=== PATIENT | male | born 1960 | race Hispanic/Latino ===

== ENCOUNTER 2018-11-05 16:07 | Inpatient (IN) | payer OTHER ==
[~2018-11-05] VITALS: Ht 170.2 cm; Wt 73.5 kg
[2018-11-05] MEDS ORDERED: ONDANSETRON HCL 4 MG/2 ML VIAL ONE (16:41)
[2018-11-05] MEDS ORDERED: SODIUM CHLORIDE 0.9% 1000ML 1,000 ML IV ONE ×2 (16:41→17:33)
[2018-11-05 16:51] LABS: BASOPHILS % (AUTO) 0.9 % (0.0-5.0); EOSINOPHILS % (AUTO) 0.6 % (0.0-8.0); LYMPHOCYTES % (AUTO) 9.9 % (21.0-51.0); MEAN CORPUSCULAR HEMOGLOBIN 31.1 pg (27.0-33.0); MEAN CORPUSCULAR HGB CONC 32.4 g/dL (32.0-36.0); MEAN CORPUSCULAR VOLUME 95.8 fL (79-99); MONOCYTES % (AUTO) 9.3 % (3.0-13.0); NEUTROPHILS % (AUTO) 79.3 % (40.0-77.0); PLATELET COUNT (AUTO) 191 K/uL (130-400); RED BLOOD CELL COUNT(AUTO) 4.28 MIL/uL (4.50-6.20); RED CELL DISTRIBUTION WIDTH 15.4 % (11.0-15.5); WHITE BLOOD COUNT (AUTO) 9.2 K/uL (4.8-10.8)
[2018-11-05 17:02] LABS: INR 1.02 (0.85-1.15); PARTIAL THROMBOPLASTIN TIME 26.3 SEC (26.3-35.5); PROTHROMBIN TIME 10.7 SEC (9.6-11.6)
[2018-11-05 17:16] LABS: ABG BASE EXCESS -14.8 mmol/L (-2.0-3.0); ABG OXYGEN SATURATION 97.3 % (95.0-99.0); ABG PCO2 23 mmHg (35-48)
[2018-11-05 17:21] LABS: ALBUMIN 3.5 g/dL (3.5-5.0); BILIRUBIN,TOTAL 1.7 mg/dL (0.2-1.0); CREATININE 1.8 mg/dL (0.5-1.5); POTASSIUM 5.5 mmol/L (3.5-5.1); TOTAL PROTEIN, SERUM 9.2 g/dL (6.0-8.3)
[2018-11-05] MEDS ORDERED: INSULIN HUMULIN R 100 UNIT/ML 3ML ONE (17:33)
[2018-11-05] MEDS ORDERED: SODIUM CHLORIDE 0.9% 100 ML IV ONE (17:33)
[2018-11-05 17:54] LABS: APPEARANCE,URINE CLEAR (CLEAR); BILIRUBIN,URINE SMALL (NEGATIVE); COLOR,URINE YELLOW (YELLOW); GLUCOSE, URINE (UA) >=1000 mg/dL (NEGATIVE); KETONES,URINE 40 mg/dL (NEGATIVE); LEUKOCYTE ESTERASE ,URINE NEGATIVE (NEGATIVE); NITRATE,URINE NEGATIVE (NEGATIVE); OCCULT BLOOD,URINE NEGATIVE (NEGATIVE); PH,URINE 5.5 (5.0-8.0); PROTEIN,URINE NEGATIVE (NEGATIVE); UROBILINOGEN,URINE 0.2 mg/dL (0.2-1.0)
[2018-11-05 18:03] LABS: AMPHET/METH SCREEN,URINE NEGATIVE (NEGATIVE); BARBITURATE SCREEN, URINE NEGATIVE (NEGATIVE); BENZODIAZEPINES SCREEN,URINE NEGATIVE (NEGATIVE); CANNABINOID SCREEN,URINE NEGATIVE (NEGATIVE); COCAINE SCREEN,URINE NEGATIVE (NEGATIVE); OPIATE SCREEN,URINE NEGATIVE (NEGATIVE); PHENCYCLIDINE SCREEN,URINE NEGATIVE (NEGATIVE)
[2018-11-05 18:13] LABS: BACTERIA,URINE Rare /HPF (None Seen); RBC,URINE 0-1 /HPF (0-1); SQUAMOUS EPITHELIAL CELL,UR Rare /HPF (0-2); WBC,URINE 0-1 /HPF (0-1)
[2018-11-05] MEDS ORDERED: SODIUM BICARB 50MEQ 50ML VIAL ONE (18:25)
[2018-11-05 18:36] LABS: MAGNESIUM 2.1 mg/dL (1.80-2.40); PHOSPHORUS 5.2 mg/dL (2.5-4.9)
[2018-11-05] MEDS ORDERED: ACETAMINOPHEN 650 MG SUPPOSITORY RC PRN ×2 (18:45)
[2018-11-05] MEDS ORDERED: INSULIN REGULAR, HUMAN 3ML 100 UNIT in SODIUM CHLORIDE 0.9% 99 ML IV SCH ×2 (18:45)
[2018-11-05] MEDS ORDERED: ONDANSETRON HCL 4 MG/2 ML VIAL IV PRN (18:45)
[2018-11-05] MEDS ORDERED: POTASSIUM CHLORIDE 10MEQ/100ML 100 ML IV PRN (18:45)
[2018-11-05] MEDS ORDERED: NITROGLYCERIN 0.4 MG SL TAB SL PRN (18:45)
[2018-11-05] MEDS: SODIUM CHLORIDE 0.9% 1000ML 1,000 ML IV SCH ×2 (18:45→23:45)
[2018-11-05] MEDS ORDERED: DEXTROSE 5 %-0.45 % NACL 1,000 ML IV PRN (18:45)
[2018-11-05] MEDS: INSULIN HUMULIN R 100 UNIT/ML 3ML IV SCH (18:45)
[2018-11-05] MEDS ORDERED: CALCIUM GLUCONATE 1 GM/10 ML VIAL IV ONE (19:02)
[2018-11-05 19:20] LABS: HEMOGLOBIN A1C 12.6 % (4.0-6.0)
[2018-11-05] MEDS: FAMOTIDINE/PF 20 MG/2 ML VIAL IV SCH (21:00)
[2018-11-05] MEDS ORDERED: AMIODARONE HCL 900 MG in DEXTROSE 5%-WATER 500 ML IV PRN (21:30)
[2018-11-05] MEDS ORDERED: AMIODARONE HCL 150 MG in DEXTROSE 5%-WATER 100 ML IV SCH (21:30)
[2018-11-06] VITALS (18 sets, daily range): BP systolic 112–160; BP diastolic 65–111
[2018-11-06 00:42] LABS: ABG BASE EXCESS -3.5 mmol/L (-2.0-3.0); ABG HCO3 20.8 mmol/L (21.0-28.0); ABG OXYGEN SATURATION 97.1 % (95.0-99.0); ABG PCO2 35 mmHg (35-48)
[2018-11-06 00:52] LABS: CREATININE 1.5 mg/dL (0.5-1.5); MAGNESIUM 1.9 mg/dL (1.80-2.40); THYROID STIMULATING HORMONE 3.52 uIU/mL (0.36-3.74); TROPONIN I 0.08 ng/mL (0.00-0.06)
[2018-11-06] MEDS ORDERED: LIDOCAINE HCL-MPF 1% 2ML VIAL IVP PRN (01:15)
[2018-11-06] MEDS ORDERED: MAGNESIUM 2GM PREMIX 50ML 50 ML IV PRN (01:15)
[2018-11-06] MEDS ORDERED: POTASSIUM CHLORIDE 10MEQ/100ML 100 ML IV PRN (01:15)
[2018-11-06] MEDS ORDERED: DEXTROSE 5 %-0.45 % NACL 1,000 ML IV ONE (01:59)
[2018-11-06] MEDS ORDERED: POTASSIUM CHLORIDE 10MEQ/100ML 100 ML IV ONE ×2 (01:59→07:00)
[2018-11-06] MEDS ORDERED: MAGNESIUM 2GM PREMIX 50ML 50 ML IV ONE (01:59)
[2018-11-06] MEDS ORDERED: LIDOCAINE HCL 1% 20 ML VIAL ONE (02:00)
[2018-11-06] MEDS ORDERED: SODIUM CHLORIDE 0.9% 100 ML IV ONE (02:27)
[2018-11-06] MEDS ORDERED: INSULIN REGULAR, HUMAN 3ML 100 UNIT in SODIUM CHLORIDE 0.9% 99 ML IV SCH ×2 (03:30)
[2018-11-06] MEDS: SODIUM CHLORIDE 0.9% 1000ML 1,000 ML IV SCH ×2 (04:45→09:10)
[2018-11-06 05:22] LABS: ABG BASE EXCESS -3.6 mmol/L (-2.0-3.0); ABG OXYGEN SATURATION 97.2 % (95.0-99.0); ABG PCO2 37 mmHg (35-48)
[2018-11-06 06:20] LABS: BASOPHILS % (AUTO) 0.5 % (0.0-5.0); EOSINOPHILS % (AUTO) 0.9 % (0.0-8.0); HEMATOCRIT 33.8 % (42-54); MEAN CORPUSCULAR HEMOGLOBIN 31.7 pg (27.0-33.0); MEAN CORPUSCULAR HGB CONC 34.6 g/dL (32.0-36.0); MEAN CORPUSCULAR VOLUME 91.7 fL (79-99); MONOCYTES % (AUTO) 11.1 % (3.0-13.0); NEUTROPHILS % (AUTO) 75.5 % (40.0-77.0); PLATELET COUNT (AUTO) 117 K/uL (130-400); RED BLOOD CELL COUNT(AUTO) 3.69 MIL/uL (4.50-6.20); RED CELL DISTRIBUTION WIDTH 14.8 % (11.0-15.5); WHITE BLOOD COUNT (AUTO) 7.8 K/uL (4.8-10.8)
[2018-11-06 06:28] LABS: CREATININE 1.3 mg/dL (0.5-1.5); POTASSIUM 3.2 mmol/L (3.5-5.1)
[2018-11-06 06:42] LABS: MAGNESIUM 2.4 mg/dL (1.80-2.40); TROPONIN I 0.09 ng/mL (0.00-0.06)
[2018-11-06] MEDS ORDERED: HYDR12.54 PO (08:35)
[2018-11-06] MEDS ORDERED: LISI-613 PO (08:35)
[2018-11-06] MEDS ORDERED: METF-444 PO (08:35)
[2018-11-06] MEDS ORDERED: METOPROLOL TARTRATE 25 MG TAB PO SCH ×2 (09:00→21:00)
[2018-11-06] MEDS ORDERED: ASPIRIN 325MG EC TAB 325 MG TABLET.DR PO SCH (09:00)
[2018-11-06] MEDS: FAMOTIDINE/PF 20 MG/2 ML VIAL IV SCH ×2 (09:08→20:40)
[2018-11-06] MEDS: ENOXAPARIN SODIUM 30 MG/0.3 ML SQ SCH (09:10)
[2018-11-06 12:17] LABS: CREATININE 1.3 mg/dL (0.5-1.5); MAGNESIUM 2.2 mg/dL (1.80-2.40); POTASSIUM 3.4 mmol/L (3.5-5.1)
[2018-11-06] MEDS: INSULIN LISPRO 100 UNIT/ML 3ML SQ SCH ×5 (12:37→22:17)
[2018-11-06] MEDS: INSULIN HUMULIN R 100 UNIT/ML 3ML IV SCH (12:39)
--- NOTE | 2018-11-06 12:57 | NUR ---
RECEIVED REPORT ON PATIENT BEING TRANSFERRED FROM ICU REPORT GIVEN BY RUDOLPH PATIENT ADMITTED FOR DKA , LAST BLOOD SUGAR IN 200 , PATIENT ON 1/2 SLIDING SCALE POTASSIUM LOW PATIENT GIVEN 2 BAGS OF REPLACEMENT AND RE- DRAWN K+ 3.4 WILL CONTINUE 2 DOSES OF POTASSIUM REPLACEMENT ON PO SCALE. . VS 112/60 O2 SATS 99 ON ROOM AIR, NEWLY DIAGNOSIS OF DM. HOME MEDICATIONS LISTED , PATIENT ALERT AND ORIENTATED X 3 . DENIES PAIN AT THIS TIME. PLACED IN BED WILL CONTINUE TO MONITOR
[2018-11-06] MEDS ORDERED: INSULIN GLARGINE 100 UNITS/ML 10 ML VIAL SQ SCH ×2 (12:58→21:00)
--- NOTE | 2018-11-06 13:35 | NUR ---
DC PLAN VISITED WITH PATIENT. PATIENT LIVES WITH MOM AND SPOUSE. INDEPENDENT ABLE TO PERFORM ADL'S. PATIENT HAS NO SERVICES OR DME'S. FEELS SAFE TO RETURN HOME. GAVE INFO REGARDING GLUCOSE BUMBOATER AT [address] FOR NEW MACHINE AND LANCETS WITH TEST STRIPS FOR THE MONTH. Addendum: 11/06/18 at 1338 by NEIL PAIZ RN CM Amended: Links added.
[2018-11-06] MEDS: POTASSIUM CHLORIDE 20 MEQ ERTAB PO PRN ×2 (16:47→18:50)
[2018-11-06 18:37] LABS: CREATININE 1.4 mg/dL (0.5-1.5); POTASSIUM 3.3 mmol/L (3.5-5.1)
[2018-11-07] VITALS: BP 117/79
[2018-11-07 04:00] VITALS: BP 145/89
[2018-11-07 04:09] LABS: HEMATOCRIT 34.4 % (42-54); MEAN CORPUSCULAR HEMOGLOBIN 31.2 pg (27.0-33.0); MEAN CORPUSCULAR HGB CONC 34.3 g/dL (32.0-36.0); MEAN CORPUSCULAR VOLUME 91.1 fL (79-99); PLATELET COUNT (AUTO) 112 K/uL (130-400); RED BLOOD CELL COUNT(AUTO) 3.78 MIL/uL (4.50-6.20); RED CELL DISTRIBUTION WIDTH 14.8 % (11.0-15.5); WHITE BLOOD COUNT (AUTO) 5.9 K/uL (4.8-10.8)
[2018-11-07 04:24] LABS: MAGNESIUM 1.7 mg/dL (1.80-2.40); POTASSIUM 3.1 mmol/L (3.5-5.1)
[2018-11-07] MEDS: INSULIN LISPRO 100 UNIT/ML 3ML SQ SCH ×7 (06:34→21:06)
[2018-11-07] MEDS: POTASSIUM CHLORIDE 20 MEQ ERTAB PO PRN ×2 (07:00→09:11)
[2018-11-07 07:29] VITALS: BP 156/89
--- NOTE | 2018-11-07 07:35 | NUR ---
ROUNDS here to see pt.
[2018-11-07] MEDS: ASPIRIN 81MG TAB.CHEW PO SCH (09:00)
[2018-11-07] MEDS: FUROSEMIDE 20 MG TABLET PO SCH (09:01)
[2018-11-07] MEDS: CARVEDILOL 3.125 MG TABLET PO SCH ×2 (09:02→21:03)
[2018-11-07] MEDS: LOSARTAN 50 MG TABLET PO SCH (09:03)
[2018-11-07] MEDS: FAMOTIDINE/PF 20 MG/2 ML VIAL IV SCH ×2 (09:04→21:04)
[2018-11-07] MEDS: ENOXAPARIN SODIUM 30 MG/0.3 ML SQ SCH (09:05)
--- NOTE | 2018-11-07 09:30 | NUR ---
GABO/DR. Jerry STEPHENSON HERE TO SEE PT, UPDATE GIVEN
[2018-11-07 11:21] VITALS: BP 125/57
[2018-11-07] MEDS: POTASSIUM CHLORIDE 10% ELIXIR 20 MEQ/15 ML UDCUP PO PRN (12:05)
[2018-11-07] MEDS: INSULIN GLARGINE 100 UNITS/ML 10 ML VIAL SQ SCH ×2 (13:10→21:06)
--- NOTE | 2018-11-07 15:06 | NUR ---
Diet Education RD provided Diabetes diet education. RD reviewed reference materials and handouts with Pt. Pt with many questions. RD answered questions thoroughly with multiple examples. Pt verbalized understanding. RD encouraged to notify as additional concerns or questions arise. Addendum: 11/07/18 at [address] RD Amended: Links added.
[2018-11-07 16:12] VITALS: BP 113/87
[2018-11-07] MEDS: INSULIN HUMULIN R 100 UNIT/ML 3ML IV SCH (18:45)
[2018-11-07 20:00] VITALS: BP 134/93
[2018-11-07] MEDS ORDERED: INSULIN GLARGINE 100 UNITS/ML 10 ML VIAL SQ SCH (21:00)
[2018-11-08] VITALS: BP 133/92
[2018-11-08 04:00] VITALS: BP 132/87
[2018-11-08 05:14] LABS: CREATININE 0.8 mg/dL (0.5-1.5); POTASSIUM 3.1 mmol/L (3.5-5.1)
[2018-11-08] MEDS: INSULIN LISPRO 100 UNIT/ML 3ML SQ SCH ×7 (06:55→20:16)
[2018-11-08 08:00] VITALS: BP 138/92
[2018-11-08] MEDS ORDERED: REGADENOSON 0.4 MG/5 ML PF SYG IVP SCH (08:30)
--- NOTE | 2018-11-08 09:40 | NUR ---
PATIENT TAKEN TO STRESS TEST VIA WHEELCHAIR IN NO DISTRESS
[2018-11-08 11:00] VITALS: BP 153/87
[2018-11-08] MEDS: ASPIRIN 81MG TAB.CHEW PO SCH (11:24)
[2018-11-08] MEDS: FAMOTIDINE/PF 20 MG/2 ML VIAL IV SCH ×2 (11:25→20:21)
[2018-11-08] MEDS: FUROSEMIDE 20 MG TABLET PO SCH (11:25)
[2018-11-08] MEDS: CARVEDILOL 3.125 MG TABLET PO SCH ×2 (11:26→20:21)
[2018-11-08] MEDS: ENOXAPARIN SODIUM 30 MG/0.3 ML SQ SCH (11:27)
[2018-11-08] MEDS: LOSARTAN 50 MG TABLET PO SCH (11:30)
[2018-11-08] MEDS: INSULIN GLARGINE 100 UNITS/ML 10 ML VIAL SQ SCH ×2 (11:45→20:18)
[2018-11-08] MEDS: POTASSIUM CHLORIDE 10% ELIXIR 20 MEQ/15 ML UDCUP PO PRN ×2 (11:48→18:56)
--- NOTE | 2018-11-08 14:55 | NUR ---
PHILIP STRESS TEST RESULTS FOR DISPOSITION DISCUSSED PLAN OF CARE Padmini LE THIS AM- STRESS TEST IN [facility], WILL NEED THOSE RESULTS FOR DISPOSITION Addendum: 11/08/18 at 1457 by LEAH BAEZ RN CM Amended: Links added.
[2018-11-08 16:00] VITALS: BP 132/84
[2018-11-08] MEDS: INSULIN HUMULIN R 100 UNIT/ML 3ML IV SCH (18:45)
[2018-11-08 19:05] VITALS: BP 130/90
[2018-11-09 00:08] VITALS: BP 121/73
[2018-11-09 04:10] VITALS: BP 138/90
[2018-11-09 05:11] LABS: BASOPHILS % (AUTO) 0.6 % (0.0-5.0); EOSINOPHILS % (AUTO) 2.7 % (0.0-8.0); HEMATOCRIT 30.9 % (42-54); LYMPHOCYTES % (AUTO) 33.2 % (21.0-51.0); MEAN CORPUSCULAR HEMOGLOBIN 30.8 pg (27.0-33.0); MEAN CORPUSCULAR HGB CONC 33.4 g/dL (32.0-36.0); MEAN CORPUSCULAR VOLUME 92.2 fL (79-99); MONOCYTES % (AUTO) 16.3 % (3.0-13.0); NEUTROPHILS % (AUTO) 47.2 % (40.0-77.0); NUCLEATED RED BLOOD CELLS 0.1 % (0.0-0.19); PLATELET COUNT (AUTO) 98 K/uL (130-400); RED BLOOD CELL COUNT(AUTO) 3.35 MIL/uL (4.50-6.20); RED CELL DISTRIBUTION WIDTH 15.1 % (11.0-15.5); WHITE BLOOD COUNT (AUTO) 4.3 K/uL (4.8-10.8)
[2018-11-09 05:39] LABS: CREATININE 0.8 mg/dL (0.5-1.5); POTASSIUM 3.4 mmol/L (3.5-5.1)
[2018-11-09] MEDS: INSULIN LISPRO 100 UNIT/ML 3ML SQ SCH ×6 (06:07→16:30)
[2018-11-09] MEDS ORDERED: ASPI-1005 PO ×2 (07:35→07:42)
[2018-11-09] MEDS ORDERED: FURO20TA6 PO (07:42)
[2018-11-09] MEDS ORDERED: CARV3.1262 PO (07:42)
[2018-11-09] MEDS ORDERED: ATOR20TA65 PO (07:42)
[2018-11-09] MEDS ORDERED: LOSA50TA2 PO (07:42)
--- NOTE | 2018-11-09 07:50 | NUR ---
Dr. Costa marcos. Patient able to go home with medical management prescriptions left in chart.
[2018-11-09 08:00] VITALS: BP 132/93
[2018-11-09] MEDS: INSULIN GLARGINE 100 UNITS/ML 10 ML VIAL SQ SCH (08:39)
[2018-11-09] MEDS: CARVEDILOL 3.125 MG TABLET PO SCH (08:41)
[2018-11-09] MEDS: LOSARTAN 50 MG TABLET PO SCH (08:41)
[2018-11-09] MEDS: FUROSEMIDE 20 MG TABLET PO SCH (08:41)
[2018-11-09] MEDS: ASPIRIN 81MG TAB.CHEW PO SCH (08:41)
[2018-11-09] MEDS: FAMOTIDINE/PF 20 MG/2 ML VIAL IV SCH (08:41)
[2018-11-09] MEDS: ENOXAPARIN SODIUM 30 MG/0.3 ML SQ SCH (08:42)
[2018-11-09] MEDS ORDERED: GLYB2.5T5 PO (09:39)
[2018-11-09] MEDS ORDERED: INSU100I21 SQ (09:39)
--- NOTE | 2018-11-09 11:40 | NUR ---
Patient given printed education on diabetes, insulin administration, complications of diabetes, and foot care management. Instructed patient that diabetes may lead to complication if BS not controlled. It will begin with neuropathy, start affecting eyes (retinopathy), then may lead to kidney failure. Instructed to always wear shoes when going outside. Managing your BS is blanco in prevention complications. Rotating insulin sites on body to prevent lipoatrophy. Patient observed me taking insulin out of vial, cleansed with alcohol pad, injected air and withdrew 12 units of Lispro into syringe. Patient returned demonstration using syringe and insulin vial. Patient then pinched belly fat, cleansed with alcohol pad and injected insulin needle. Pt tolerated well. Teaching to continue.
[2018-11-09 11:50] VITALS: BP 129/84
[2018-11-09 16:00] VITALS: BP 126/85
--- NOTE | 2018-11-09 17:45 | NUR ---
Patient discharged in stable condition. Patient instructed on what to do Hypoglycemia/hyperglycemia occurs, DKA, cardiomyopathy, and Insulin side effects. Hypoglycemia you may experience shakiness, sweating, confusion. Instructed if severe chest pain, shortness of breath, changes in mental status, n/v, abdominal pain come back to ER or call 911. instructed on s/s of heart attack such as left arm numbness, chest pain severe back pain tightness in chest call 911. Patient to make appointment with [facility] with Dr. Hoffmann in 3-5 days, and has scheduled appt with Dr. Stoner on 12/08/18 at 1150. Instructed to monitor blood sugars 2-3 times a day, If symptomatic, check blood sugar and take precaution. No other questions or concerns. Addendum: 11/09/18 at 1840 by JULIÁN ROWELL RN RN Instructed on peak of Insulin Detemir onset peak is about 1-2 hours, and duration is sustained working up to 24 hours. Instructed to always have sugar at hand such as a candy, soda or juice if hypoglycemia were to occur. Instructed on possible side effects of coreg, lasix, Insulin, ASA, Losartan, glyburide and atorvastatin. About 20 minutes of discharge instruction given on diabetes, new prescriptions and possible side effects. Pt verbalized understanding to all teaching.
== END 2018-11-09 18:11 | disposition home or self-care (01) | DRG 638 ==
LOC: EDH 16:07 → EDHIP 16:08 → 2BH 11-06 08:07 → 4CH 11-06 12:56
PROVIDERS: ADMIT Hospitalist; ATTEND Hospitalist
DX: E11.10 Type 2 diabetes mellitus with ketoacidosis without coma (principal); N17.9 Acute kidney failure, unspecified; E87.1 Hypo-osmolality and hyponatremia; I42.0 Dilated cardiomyopathy; R00.0 Tachycardia, unspecified; E87.5 Hyperkalemia; E11.22 Type 2 diabetes mellitus with diabetic chronic kidney disease; I12.9 Hypertensive chronic kidney disease with stage 1 through stage 4 chronic kidney disease, or unspecified chronic kidney disease; I44.7 Left bundle-branch block, unspecified; N18.3 Chronic kidney disease, stage 3 (moderate); Z80.8 Family history of malignant neoplasm of other organs or systems
CPT/HCPCS: 36415; 36600; 70450; 71045; 78452; 80048; 80053; 80061; 80305; 81001; 82550; 82803; 82947; 82948; 83036; 83735; 83874; 83880; 83930; 84100; 84443; 84484; 85025; 85027; 85610; 85730; 87040; 93005; 93017; 93306; 96374; 99291; A9500; G0378; J0282; J0610; J1650; J1815; J2405; J2785; J3475; J3490; J7030; J7042; J7060

== ENCOUNTER 2019-10-12 15:14 | Inpatient (IN) | payer MEDICAID, OTHER ==
[2019-10-12] VITALS (13 sets, daily range): BP systolic 102–165; BP diastolic 62–94
[~2019-10-12] VITALS: Ht 172.7 cm; Wt 80.7 kg
[~2019-10-12 15:14] MED LIST: AMIODARONE HCL 50 MG/ML 3 ML VIAL IV ONE; ASPI-1005 PO; ATOR20TA65 PO; ATROPINE SULFATE 0.1 MG/ML 10 ML SYG IVP ONE; CARV3.1262 PO; EPINEPHRINE 0.1 MG/ML 10 ML SYG IVP ONE; ETOMIDATE 2 MG/ML 10 ML VIAL IVP ONE; FURO20TA6 PO; GLYB2.5T5 PO; INSU100I21 SQ; LOSA50TA2 PO; METF-444 PO; ROCURONIUM BROMIDE 10MG/1ML 5ML VL IV ONE
[2019-10-12] MEDS ORDERED: NOREPINEPHRINE BITARTRATE 1 MG/1 ML ML IV ONE (15:25)
[2019-10-12] MEDS ORDERED: SODIUM CHLORIDE 0.9% 100 ML IV ONE ×2 (15:25→17:34)
[2019-10-12 15:39] LABS: BASOPHILS % (AUTO) 0.7 % (0.0-5.0); EOSINOPHILS % (AUTO) 2.4 % (0.0-8.0); HEMATOCRIT 53.1 % (42-54); MEAN CORPUSCULAR HEMOGLOBIN 31.1 pg (27.0-33.0); MEAN CORPUSCULAR HGB CONC 32.2 g/dL (32.0-36.0); MEAN CORPUSCULAR VOLUME 96.7 fL (79-99); MONOCYTES % (AUTO) 8.2 % (3.0-13.0); NEUTROPHILS % (AUTO) 47.4 % (40.0-77.0); PLATELET COUNT (AUTO) 206 K/uL (130-400); RED BLOOD CELL COUNT(AUTO) 5.49 MIL/uL (4.50-6.20); RED CELL DISTRIBUTION WIDTH 13.8 % (11.0-15.5); WHITE BLOOD COUNT (AUTO) 8.9 K/uL (4.8-10.8)
[2019-10-12] MEDS ORDERED: EPINEPHRINE 1 MG/ML 30ML VIAL IJ ONE (15:40)
[2019-10-12] MEDS ORDERED: SODIUM BICARB 50MEQ 50ML VIAL ONE ×2 (15:40→17:00)
--- NOTE | 2019-10-12 15:45 | NUR ---
RENE Nails TUBE FROM 25CM TO 23CM Addendum: 10/12/19 at 1734 by YOCASTA CABALLERO Amended: Links added.
[2019-10-12 15:50] LABS: ABG BASE EXCESS -13.8 mmol/L (-2.0-3.0); ABG HCO3 19.4 mmol/L (21.0-28.0); ABG OXYGEN SATURATION 82.5 % (95.0-99.0); ABG PCO2 82 mmHg (35-48)
[2019-10-12 15:51] LABS: CREATININE 1.1 mg/dL (0.5-1.5)
[2019-10-12 15:53] LABS: INR 1.01 (0.85-1.15); PARTIAL THROMBOPLASTIN TIME 25.2 SEC (26.3-35.5); PROTHROMBIN TIME 10.9 SEC (9.6-11.6)
[2019-10-12 15:56] LABS: BILIRUBIN,TOTAL 1.9 mg/dL (0.2-1.0); TOTAL PROTEIN, SERUM 10.5 g/dL (6.0-8.3)
[2019-10-12 16:03] LABS: CRP QUANTITATIVE 2.1 mg/L (0.00-9.0)
--- NOTE | 2019-10-12 16:20 | NUR ---
RELL Farrell present for code blue with . stated that they went to MD appt for routine lab work to refill pt's meds. While driving home, began to complain that he was having trouble breathing. states she brought pt to ER and on the way here pt began shaking and foaming at the mouth and nose. stated that pt's brother just in Dec here at [facility]. stated that they discussed code status and life support. "He would not want this" " but I am not going to let him ". was calling family to let the know pt was in ER and in code blue. After completed assessment with [facility] ER Director, was asked if anyone in their home had been sick, she said no. Anyone in the home been exposed to covid19 " I don't want to tell you where I work". " I work at [employer]" " but I tested negative last week, I am clean". Once this information was known, , pt's son and pt's sister were moved to a different room to wait for MD to talk to them. Family wanting to see pt and asking where they will be allowed to wait for results of lab work. Jami informed [facility] ER director of family questions. He will talk to them.
[2019-10-12 16:35] LABS: ABG BASE EXCESS -10.3 mmol/L (-2.0-3.0); ABG HCO3 17.2 mmol/L (21.0-28.0); ABG OXYGEN SATURATION 94.1 % (95.0-99.0); ABG PCO2 43 mmHg (35-48)
[2019-10-12] MEDS ORDERED: PROPOFOL 1000 MG/100 ML 100 ML IV ONE (17:18)
[2019-10-12] MEDS ORDERED: AZITHROMYCIN 500MG+NS 250ML 250 ML IV ONE (17:34)
[2019-10-12] MEDS ORDERED: CEFTRIAXONE SODIUM 1 GM ONE (17:34)
[2019-10-12 17:44] LABS: APPEARANCE,URINE Cloudy (CLEAR); BILIRUBIN,URINE Negative (NEGATIVE); COLOR,URINE Orange (YELLOW); GLUCOSE, URINE (UA) 250 mg/dL (NEGATIVE); KETONES,URINE Negative (NEGATIVE); LEUKOCYTE ESTERASE ,URINE Negative (NEGATIVE); NITRATE,URINE Negative (NEGATIVE); OCCULT BLOOD,URINE Large (NEGATIVE); PROTEIN,URINE 300 mg/dL (NEGATIVE)
[2019-10-12 18:00] LABS: BACTERIA,URINE Few /HPF (None Seen)
[2019-10-12 18:01] LABS: AMORPHOUS SEDIMENT,UR Few /LPF (None Seen); SQUAMOUS EPITHELIAL CELL,UR None Seen /HPF (0-2)
[2019-10-12] MEDS ORDERED: ENOXAPARIN SODIUM 100 MG/1 ML SQ ONE (18:29)
[2019-10-12] MEDS ORDERED: VANCOMYCIN PROTOCOL PER PHARMACY IV SCH (18:30)
[2019-10-12] MEDS ORDERED: PHARMACY COMMUNICATION MISC SCH ×2 (18:30)
[2019-10-12] MEDS ORDERED: PANTOPRAZOLE SODIUM 40 MG TABLET.DR PO SCH (18:30)
[2019-10-12] MEDS: AZITHROMYCIN 500MG+NS 250ML 250 ML IV SCH (18:30)
[2019-10-12 18:49] LABS: ABG BASE EXCESS -8.5 mmol/L (-2.0-3.0); ABG HCO3 17.7 mmol/L (21.0-28.0); ABG OXYGEN SATURATION 92.7 % (95.0-99.0); ABG PCO2 39 mmHg (35-48)
[2019-10-12] MEDS: PANTOPRAZOLE 40 MG/VIAL IVP SCH (18:53)
[2019-10-12] MEDS ORDERED: MIDAZOLAM HCL 50 MG in SODIUM CHLORIDE 0.9% 50 ML IV SCH (19:00)
[2019-10-12] MEDS ORDERED: COMPOUND IV REFRIGERATED 1 EACH IVSOLN MISC PRN (19:00)
[2019-10-12 19:24] LABS: HEMATOCRIT 53.5 % (42-54); MEAN CORPUSCULAR HEMOGLOBIN 31.9 pg (27.0-33.0); MEAN CORPUSCULAR HGB CONC 33.5 g/dL (32.0-36.0); MEAN CORPUSCULAR VOLUME 95.2 fL (79-99); NUCLEATED RED BLOOD CELLS 1.1 % (0.0-0.19); PLATELET COUNT (AUTO) 230 K/uL (130-400); RED BLOOD CELL COUNT(AUTO) 5.62 MIL/uL (4.50-6.20); RED CELL DISTRIBUTION WIDTH 14.2 % (11.0-15.5); WHITE BLOOD COUNT (AUTO) 2.6 K/uL (4.8-10.8)
[2019-10-12] MEDS ORDERED: IPRATROPIUM/ALBUTEROL SULFATE 3 ML SOLUTION IH ONE (19:47)
[2019-10-12 19:56] LABS: BAND NEUTROPHILS % (MANUAL) 14 % (0-2); EOSINOPHILS % (MANUAL) 1 % (1-6); LYMPHOCYTES % (MANUAL) 33 % (22-44); MAN.DIFF COMMENT-IMPRESSION MANUAL DIFFERENTIAL; MONOCYTES % (MANUAL) 1 % (2-9); SEGMENTED NEUTROPHILS % 51 % (40-70)
[2019-10-12] MEDS ORDERED: METHYLPREDNISOLONE SOD SUCC 40MG/ML 1ML ONE (20:04)
--- NOTE | 2019-10-12 20:30 | NUR ---
ADMISSION 1940 RECEIVED ED REPORT FROM DIDI ROGER RN 2029 PT ADMIT RM 219 ARRIVED WITH ER/RESPIRATORY TEAM INTUBATED/SEDATED ON MULTIPLE PRESSORS NO BELONGINS/MEDICATION AT BEDSIDE. ATTENDING HOSPITALIST Filippo SANFORD NOTIFIED OF PT ADMISSION V/S,MEDS,LABS, PT CONDITION AND CHART REVIEWED. DR. STOUT MADE AWARE OF PT CONDITION AND PLAN OF CARE. NEW ORDER VQ SCAN STAT TO R/O PE. TOOL SETTER INTERVENTIONAL RADIOLOGY INFORMED OF NEW ORDER, STATES UNABLE TO PERFORM EXAM D/T PT INTUBATED. HOSPITALIST MADE AWARE OF DR. STOUT ORDER AND DENIAL FROM IR. NEW ORDER VENOUS DOPPLER LOWER BLE CARRIED OUT AND NEGATIVE RESULT REPORTED. DR. STOUT PAGED TO INFORM AWAITING CALL BACK.
[2019-10-12] MEDS: METHYLPREDNISOLONE SOD SUCC 40MG/ML 1ML IVP SCH (21:00)
[2019-10-12 21:09] LABS: CREATININE 1.6 mg/dL (0.5-1.5); POTASSIUM 3.9 mmol/L (3.5-5.1)
[2019-10-12 21:14] LABS: ALBUMIN 2.2 g/dL (3.5-5.0); BILIRUBIN,TOTAL 2.6 mg/dL (0.2-1.0); TOTAL PROTEIN, SERUM 6.3 g/dL (6.0-8.3)
[2019-10-12] MEDS: MEROPENEM 1 GM VIAL IVP SCH (21:17)
[2019-10-12] MEDS: VANCOMYCIN 1.25 GM in SODIUM CHLORIDE 0.9% 250 ML IV SCH (21:19)
[2019-10-12 21:26] LABS: ABG BASE EXCESS -9.5 mmol/L (-2.0-3.0); ABG HCO3 18.7 mmol/L (21.0-28.0); ABG OXYGEN SATURATION 87.5 % (95.0-99.0); ABG PCO2 49 mmHg (35-48)
[2019-10-12] MEDS: FENTANYL 1000MCG+NS 100ML 100 ML IV SCH (21:31)
[2019-10-12] MEDS: NOREPINEPHRINE 4MG/NS 250ML 250 ML IV SCH (22:51)
[2019-10-13] VITALS (50 sets, daily range): BP systolic 90–157; BP diastolic 40–94
[2019-10-13] MEDS ORDERED: ACETAMINOPHEN ELIXIR 650 MG/20.3 ML UDCUP ONE (00:39)
[2019-10-13] MEDS: ACETAMINOPHEN ELIXIR 650 MG/20.3 ML UDCUP GT PRN (01:17)
[2019-10-13] MEDS: ACETAMINOPHEN 650 MG SUPPOSITORY RC SCH (04:05)
[2019-10-13] MEDS: FENTANYL 1000MCG+NS 100ML 100 ML IV SCH (04:13)
[2019-10-13] MEDS: MIDAZOLAM 50MG-0.9% NS 50ML 50 ML IV SCH (04:13)
[2019-10-13] MEDS: MEROPENEM 1 GM VIAL IVP SCH ×3 (04:46→17:21)
[2019-10-13 05:23] LABS: BASOPHILS % (AUTO) 0.2 % (0.0-5.0); EOSINOPHILS % (AUTO) 4.6 % (0.0-8.0); LYMPHOCYTES % (AUTO) 12.1 % (21.0-51.0); MEAN CORPUSCULAR HEMOGLOBIN 31.4 pg (27.0-33.0); MEAN CORPUSCULAR HGB CONC 32.2 g/dL (32.0-36.0); MEAN CORPUSCULAR VOLUME 97.4 fL (79-99); MONOCYTES % (AUTO) 13.7 % (3.0-13.0); NEUTROPHILS % (AUTO) 68.6 % (40.0-77.0); PLATELET COUNT (AUTO) 138 K/uL (130-400); RED BLOOD CELL COUNT(AUTO) 4.62 MIL/uL (4.50-6.20); RED CELL DISTRIBUTION WIDTH 14.3 % (11.0-15.5)
[2019-10-13 05:45] LABS: INR 1.53 (0.85-1.15); PARTIAL THROMBOPLASTIN TIME 37.9 SEC (26.3-35.5); PROTHROMBIN TIME 16.3 SEC (9.6-11.6)
[2019-10-13 05:55] LABS: D-DIMER > 10000 ng/mL (0-500)
[2019-10-13 06:00] LABS: ALBUMIN 2.4 g/dL (3.5-5.0); BILIRUBIN,TOTAL 1.9 mg/dL (0.2-1.0); CREATININE 2.9 mg/dL (0.5-1.5); POTASSIUM 3.6 mmol/L (3.5-5.1); TOTAL PROTEIN, SERUM 6.4 g/dL (6.0-8.3)
[2019-10-13] MEDS: NOREPINEPHRINE 4MG/NS 250ML 250 ML IV SCH ×2 (06:08→11:50)
--- NOTE | 2019-10-13 06:30 | NUR ---
UPDATE 5181 HOSPITALIST ONCSUNIL PAGED THROUGH ANSWERING SERVICE TO REPORT CRITICAL LAB VALUES CHEMICAL PROCESS PROJECT ENGINEER DR. Posada AWAITING CALL BACK
--- NOTE | 2019-10-13 07:41 | NUR ---
PATIENT DOES NOT RESPOND TO PAINFUL STIMULATION ON ALL FOUR EXTREMITIES. PATIENT DOES NOT HAVE A GAG REFLEX DURING ET SUCTION. BOTH PUPILS ARE 5MM, FIXED. PATIENT DOES NOT RESPOND TO COMMAND. VENTILATOR RATE 22, PATIENT BREATHING 25 BREATHES PER MIN. SEDATION TURNED OFF 0730, WILL EVALUATE FURTHER. MADE AWARE.
--- NOTE | 2019-10-13 08:00 | NUR ---
PATIENT OFF SEDATION. NO RESPONSE TO PAINFUL STIMULATION TO EXTREMITIES, NO RESPONSE TO STERNAL RUB. BOTH PUPILS 5MM FIXED, NO GAG REFLEX. OCULOCEPHALIC REFLEX NEGATIVE. UPDATED HOSPITALIST AND CRITICAL CARE TEAM.
[2019-10-13] MEDS ORDERED: INSULIN REGULAR, HUMAN 3ML 100 UNIT in SODIUM CHLORIDE 0.9% 99 ML IV PRN ×2 (08:15)
--- NOTE | 2019-10-13 08:15 | NUR ---
STARTING PATIENT ON HYPOTHERMIC PROTOCOL PER MD ORDER.
[2019-10-13] MEDS: METHYLPREDNISOLONE SOD SUCC 40MG/ML 1ML IVP SCH ×2 (08:29→20:39)
[2019-10-13] MEDS: ASPIRIN 81MG TAB.CHEW PO SCH (08:30)
[2019-10-13] MEDS ORDERED: PANTOPRAZOLE SODIUM 40 MG TABLET.DR PO SCH (09:00)
[2019-10-13] MEDS: VANCOMYCIN 1.25 GM in SODIUM CHLORIDE 0.9% 250 ML IV SCH ×2 (09:00→20:38)
--- NOTE | 2019-10-13 09:25 | NUR ---
DR. GARCIA FROM CRITICAL CARE TEAM AT BEDSIDE. UPDATED MD ON PATIENT LABS AND STATUS. ORDERS GIVEN, SEE CHART.
--- NOTE | 2019-10-13 10:30 | NUR ---
UPDATED CRITICAL CARE TEAM OF ABG'S AND BLOOD WORK THAT WAS ORDERED. CT SCAN OF HEAD W/O CONTRAST SOON TO BE DONE.
[2019-10-13 10:34] LABS: ABG BASE EXCESS -7.7 mmol/L (-2.0-3.0); ABG HCO3 15.6 mmol/L (21.0-28.0); ABG OXYGEN SATURATION 99.7 % (95.0-99.0); ABG PCO2 27 mmHg (35-48)
[2019-10-13 10:51] LABS: CREATININE 3.7 mg/dL (0.5-1.5); MAGNESIUM 1.4 mg/dL (1.80-2.40); POTASSIUM 3.5 mmol/L (3.5-5.1)
[2019-10-13] MEDS: PANTOPRAZOLE 40 MG/VIAL IVP SCH (11:45)
[2019-10-13 12:28] LABS: INR 1.5 (0.85-1.15); PARTIAL THROMBOPLASTIN TIME 39.7 SEC (26.3-35.5); PROTHROMBIN TIME 15.9 SEC (9.6-11.6)
--- NOTE | 2019-10-13 12:37 | NUR ---
UPDATED CRITICAL CARE TEAM OF PATIENT STATUS, LABS.
[2019-10-13] MEDS: MAGNESIUM 2GM PREMIX 50ML 50 ML IV PRN ×2 (12:45→18:10)
[2019-10-13 14:43] LABS: ABG BASE EXCESS -8.1 mmol/L (-2.0-3.0); ABG HCO3 15.9 mmol/L (21.0-28.0); ABG OXYGEN SATURATION 99.1 % (95.0-99.0); ABG PCO2 29 mmHg (35-48)
--- NOTE | 2019-10-13 16:36 | NUR ---
INITIAL Pt currently intubated. Spoke w spouse via phone. Per Mrs Polanco, prior to admission pt was independent w ambulation and ADLs. He does not own any DME or receive services. Per spouse pt usually obtains medications @ [facility]. Mrs. Polanco mentions that she is waiting for her son to arrive from out of town. She mentions she was informed pt does not have a good prognosis and may not "make it". She states she is waiting for her son to arrive before making further decisions. CM to continue to follow. Addendum: 10/14/19 at 1639 by RANI MAS CM Amended: Links added.
[2019-10-13] MEDS: AZITHROMYCIN 500MG+NS 250ML 250 ML IV SCH (17:24)
[2019-10-13] MEDS: HEPARIN 25000 UNITS/250 ML D5W 250 ML IV SCH (17:46)
[2019-10-13 17:56] LABS: CREATININE 3.5 mg/dL (0.5-1.5); MAGNESIUM 1.9 mg/dL (1.80-2.40); POTASSIUM 3.9 mmol/L (3.5-5.1)
[2019-10-13 17:59] LABS: INR 1.63 (0.85-1.15); PROTHROMBIN TIME 17.3 SEC (9.6-11.6)
[2019-10-13 21:31] LABS: ABG BASE EXCESS -6.4 mmol/L (-2.0-3.0); ABG HCO3 17.1 mmol/L (21.0-28.0); ABG OXYGEN SATURATION 98.1 % (95.0-99.0); ABG PCO2 29 mmHg (35-48)
[2019-10-14] VITALS (69 sets, daily range): BP systolic 72–144; BP diastolic 36–90
[2019-10-14 00:58] LABS: INR 1.83 (0.85-1.15); PROTHROMBIN TIME 19.3 SEC (9.6-11.6)
[2019-10-14 01:01] LABS: PARTIAL THROMBOPLASTIN TIME > 120.0 SEC (26.3-35.5)
[2019-10-14] MEDS: MEROPENEM 1 GM VIAL IVP SCH ×3 (01:55→17:51)
[2019-10-14] MEDS: FENTANYL 1000MCG+NS 100ML 100 ML IV SCH ×2 (01:58→14:24)
[2019-10-14] MEDS: ACETAMINOPHEN 650 MG SUPPOSITORY RC SCH (04:00)
[2019-10-14 06:01] LABS: BASOPHILS % (AUTO) 0.1 % (0.0-5.0); EOSINOPHILS % (AUTO) 0.6 % (0.0-8.0); HEMATOCRIT 45.6 % (42-54); LYMPHOCYTES % (AUTO) 7.2 % (21.0-51.0); MEAN CORPUSCULAR HEMOGLOBIN 31.4 pg (27.0-33.0); MEAN CORPUSCULAR HGB CONC 33.6 g/dL (32.0-36.0); MEAN CORPUSCULAR VOLUME 93.4 fL (79-99); MONOCYTES % (AUTO) 6.4 % (3.0-13.0); NEUTROPHILS % (AUTO) 73.8 % (40.0-77.0); PLATELET COUNT (AUTO) 72 K/uL (130-400); RED BLOOD CELL COUNT(AUTO) 4.88 MIL/uL (4.50-6.20); RED CELL DISTRIBUTION WIDTH 14.6 % (11.0-15.5); WHITE BLOOD COUNT (AUTO) 17.5 K/uL (4.8-10.8)
[2019-10-14 06:28] LABS: INR 2.05 (0.85-1.15); PROTHROMBIN TIME 21.5 SEC (9.6-11.6)
[2019-10-14 06:40] LABS: ALBUMIN 2.5 g/dL (3.5-5.0); BILIRUBIN,TOTAL 3.8 mg/dL (0.2-1.0); CREATININE 4.5 mg/dL (0.5-1.5); POTASSIUM 4.6 mmol/L (3.5-5.1); TOTAL PROTEIN, SERUM 6.9 g/dL (6.0-8.3)
[2019-10-14 07:48] LABS: PARTIAL THROMBOPLASTIN TIME > 120.0 SEC (26.3-35.5)
[2019-10-14] MEDS: ASPIRIN 81MG TAB.CHEW PO SCH (09:00)
--- NOTE | 2019-10-14 09:00 | NUR ---
HEPARIN DRIP PTT OF >120 WAS REPORTED FROM LAB AT 0800. HEPARIN INFUSION PUT ON HOLD FOR 1HR AND RESTARTED AT THIS TIME AT 15 U/KG/HR PER PROTOCOL. VERIFIED WITH RUDOLPH PULLIAM.
[2019-10-14 09:11] LABS: ABG BASE EXCESS -6.3 mmol/L (-2.0-3.0); ABG OXYGEN SATURATION 98.1 % (95.0-99.0); ABG PCO2 33 mmHg (35-48)
[2019-10-14] MEDS: VANCOMYCIN 1.25 GM in SODIUM CHLORIDE 0.9% 250 ML IV SCH (10:00)
[2019-10-14] MEDS: METHYLPREDNISOLONE SOD SUCC 40MG/ML 1ML IVP SCH (10:01)
[2019-10-14] MEDS: PANTOPRAZOLE 40 MG/VIAL IVP SCH (10:01)
[2019-10-14] MEDS: HEPARIN 25000 UNITS/250 ML D5W 250 ML IV SCH (10:33)
--- NOTE | 2019-10-14 13:30 | NUR ---
DNR STATUS WAS APPROACHED WITH DNR STATUS BY HOSPITALIST MD AND FORMING TUBE SELECTOR. WAS GIVEN FORM BY RN AND EXPLAINED IN DETAIL BUT IS HESITANT TO SIGN ANYTHING UNTIL PATIENT'S SON ARRIVES.
--- NOTE | 2019-10-14 14:10 | NUR ---
REWARMING PER YESTERDAY'S CHARTING, HYPOTHERMIA GOAL TEMPERATURE WAS ACHIEVED AT 1402 (10/12). PATIENT REMAINED WITHIN GOAL TEMPERATURE RANGE FOR 24 HOURS. REWARMING INITIATED AT THIS TIME (1410).
[2019-10-14] MEDS: MIDAZOLAM 50MG-0.9% NS 50ML 50 ML IV SCH (14:23)
--- NOTE | 2019-10-14 16:30 | NUR ---
DR. RADHA GARCIA AT BEDSIDE TO SEE AND ASSESS PATIENT. NOTIFIED OF PLATELET COUNT, STATED TO DISCONTINUE HEPARIN DRIP. HE WAS NOTIFIED THAT REWARMING PHASE OF HYPOTHERMIA PROTOCOL INITIATED AT 1400. HE GAVE ORDERS TO DISCONTINUE STEROID THERAPY WELL.
[2019-10-14] MEDS ORDERED: SODIUM CHLORIDE 0.9% 1000ML 1,000 ML IV ONE (17:50)
[2019-10-14] MEDS: AZITHROMYCIN 500MG+NS 250ML 250 ML IV SCH (17:51)
[2019-10-14] MEDS: NOREPINEPHRINE 4MG/NS 250ML 250 ML IV SCH (18:09)
[2019-10-14 18:44] LABS: HEMATOCRIT 42.4 % (42-54); MEAN CORPUSCULAR HEMOGLOBIN 30.7 pg (27.0-33.0); MEAN CORPUSCULAR HGB CONC 32.5 g/dL (32.0-36.0); MEAN CORPUSCULAR VOLUME 94.4 fL (79-99); RED BLOOD CELL COUNT(AUTO) 4.49 MIL/uL (4.50-6.20); RED CELL DISTRIBUTION WIDTH 14.7 % (11.0-15.5); WHITE BLOOD COUNT (AUTO) 26.5 K/uL (4.8-10.8)
[2019-10-14 19:18] LABS: ALBUMIN 2.2 g/dL (3.5-5.0); BILIRUBIN,TOTAL 3.1 mg/dL (0.2-1.0); CREATININE 5.1 mg/dL (0.5-1.5); POTASSIUM 4.8 mmol/L (3.5-5.1); TOTAL PROTEIN, SERUM 6.4 g/dL (6.0-8.3)
--- NOTE | 2019-10-14 20:45 | NUR ---
RHYTHM CHANGE PATIENT CONVERTED TO A-FIB. CARDIOLOGY CORRUGATOR OPERATOR HELPER PAGED. RETURN CALL FROM DR. STOUT. NOTIFIED PATIENT A-FIB WITH VENTRICULAR ECTOPY RATE 90-110'S. NO NEW ORDERS AT THIS TIME.
--- NOTE | 2019-10-14 21:46 | NUR ---
LIANNA 214 PT GCS 3, VENTILATED, PUPILS FIXED, - COUGH , - GAG, UNRESPONSIVE POST CARDIAC ARREST 10/12/19. INITIATED CONTACT WITH LIANNA DONOR REFERRAL LINE [phone]. REFERRAL # [id number]. CAFETERIA COUNTER ATTENDANT: YANCY
--- NOTE | 2019-10-14 22:23 | NUR ---
LIANNA F/U CALL FROM LIANNA GARCIA DONOR REFERRAL LINE. PROVIDED PATIENT HISTORY. REQUEST TO CALL WITH ANY CHANGES IN PATIENT CONDITION/ CODE STATUS OR PRIOR TO WITHDRAWAL.
[2019-10-15] VITALS (91 sets, daily range): BP systolic 85–172; BP diastolic 34–104
[2019-10-15] MEDS ORDERED: DEXTROSE 50%-WATER 50 ML DISP.SYRIN IV ONE (00:15)
[2019-10-15] MEDS: MEROPENEM 1 GM VIAL IVP SCH ×3 (02:41→10:35)
[2019-10-15] MEDS: NOREPINEPHRINE 4MG/NS 250ML 250 ML IV SCH ×4 (03:01→23:32)
[2019-10-15 03:47] LABS: BASOPHILS % (AUTO) 0.1 % (0.0-5.0); EOSINOPHILS % (AUTO) 52.7 % (0.0-8.0); HEMATOCRIT 42.4 % (42-54); LYMPHOCYTES % (AUTO) 3.6 % (21.0-51.0); MEAN CORPUSCULAR HEMOGLOBIN 31.2 pg (27.0-33.0); MEAN CORPUSCULAR VOLUME 94.4 fL (79-99); NEUTROPHILS % (AUTO) 35.7 % (40.0-77.0); PLATELET COUNT (AUTO) 86 K/uL (130-400); RED BLOOD CELL COUNT(AUTO) 4.49 MIL/uL (4.50-6.20); RED CELL DISTRIBUTION WIDTH 14.8 % (11.0-15.5)
[2019-10-15 03:51] LABS: CREATININE 5.6 mg/dL (0.5-1.5); POTASSIUM 4.8 mmol/L (3.5-5.1)
[2019-10-15 04:09] LABS: BAND NEUTROPHILS % (MANUAL) 11 % (0-2); LYMPHOCYTES % (MANUAL) 10 % (22-44); MAN.DIFF COMMENT-IMPRESSION MANUAL DIFFERENTIAL; MONOCYTES % (MANUAL) 12 % (2-9); PLATELET MORPHOLOGY COMMENT DECREASED; SEGMENTED NEUTROPHILS % 67 % (40-70)
[2019-10-15 04:20] LABS: ALBUMIN 2.3 g/dL (3.5-5.0); BILIRUBIN,TOTAL 2.8 mg/dL (0.2-1.0); TOTAL PROTEIN, SERUM 6.8 g/dL (6.0-8.3)
[2019-10-15] MEDS: FENTANYL 1000MCG+NS 100ML 100 ML IV SCH (05:37)
[2019-10-15 07:23] LABS: ABG OXYGEN SATURATION 89.9 % (95.0-99.0); ABG PCO2 36 mmHg (35-48)
[2019-10-15] MEDS: PANTOPRAZOLE 40 MG/VIAL IVP SCH (08:34)
[2019-10-15] MEDS: ASPIRIN 81MG TAB.CHEW PO SCH (08:35)
--- NOTE | 2019-10-15 09:05 | NUR ---
MD ROUNDS DR. JOEL AT BEDSIDE. STATES SHE IS WAITING FOR SON FROM OUT OF TOWN BEFORE WITHDRAWING CARE. DR. JOEL ASKED IF SHE HAD ANY QUESTIONS OR CONCERNS FOR HIM, SHE STATED THAT SHE DID NOT HAVE ANY QUESTIONS.
--- NOTE | 2019-10-15 09:55 | NUR ---
MD ROUNDS DR. PERAZA AT BEDSIDE TO SEE AND EXAM PATIENT. AT BEDSIDE. DR. PERAZA EXPLAINED PATIENT'S CURRENT CONDITION TO THE . IS UNDERSTANDING OF PATIENT'S STATUS.
--- NOTE | 2019-10-15 09:58 | NUR ---
LIANNA ALEJO FROM [facility] CALLED AT THIS TIME TO INFORM THAT PATIENT HAS BEEN RULED OUT MEDICALLY. HOWEVER HE STILL REMAINS A CANDIDATE FOR TISSUE/EYE DONOR CANDIDATE. SHE STATED TO CALL REFERRAL LINE AT THE EVENT OF TIME OF .
--- NOTE | 2019-10-15 10:34 | NUR ---
f/u SW spoke to nurse, pt is full code, son driving in from [place]. SW visited with at bedside. states prognosis for pt is poor and he is not doing well at this time. hopeful that pt will make it for their oldest son to see pt. Discussed code status. SW answered all questions asked about DNR.
[2019-10-15] MEDS: ACETAMINOPHEN ELIXIR 650 MG/20.3 ML UDCUP GT PRN ×2 (10:51→23:33)
--- NOTE | 2019-10-15 11:10 | NUR ---
CODE STATUS AT BEDSIDE, REQUESTING TO SIGN DNR FORM. FORM SIGNED, WITNESSED BY PRIMARY RN AND CHARGE NURSE. DR. PERAZA MADE AWARE AND HE STATED TO ENTER ORDER INTO SYSTEM. ORDER WAS ENTERED AT THIS TIME.
--- NOTE | 2019-10-15 11:30 | NUR ---
MD ROUNDS DR. RAMIREZ AT BEDSIDE TO SEE AND ASSESS PATIENT. DR. RAMIREZ EXPLAINED TO WANG'S CURRENT CONDITION. SHE MADE HIM AWARE THAT SHE DID AGREE TO DNR STATUS AND IS AWAITING FOR THEIR SON'S ARRIVAL FROM OUT OF TOWN BEFORE DISCONTINUING TREATMENT.
[2019-10-15] MEDS ORDERED: DEXMEDETOMIDINE HCL 400 MCG in SODIUM CHLORIDE 0.9% 100 ML IV SCH (13:00)
--- NOTE | 2019-10-15 15:35 | NUR ---
BRADYCARDIA DR. STOUT NOTIFIED OF PATIENT'S BRADYCARDIA, STATED TO REFER TO HYDRAULIC PRESS IN OPERATOR FOR ANY FURTHER ORDERS. DR. TYLER NOTIFIED OF BRADYCARDIA AT THIS TIME. HE WAS MADE AWARE THAT BP REMAINS THE SAME WITH LEVOPHED DRIP, BUT HEART RATE CONSISTENTLY DECREASES. HE STATED HE WILL DISCUSS WITH DR. PERAZA WHAT CAN BE DONE AND WILL CALL BACK WITH ANY NEW ORDERS.
[2019-10-15] MEDS ORDERED: DOBUTAMINE 250MG/D5 250ML 250 ML IV SCH (16:30)
[2019-10-15] MEDS ORDERED: PHARMACY COMMUNICATION MISC SCH (17:45)
--- NOTE | 2019-10-15 19:20 | NUR ---
STATUS DR STOUT AT THE BEDSIDE. UPDATED ON PATIENT CONDITION AND CURRENT INFUSIONS. PT STILL CURRENTLY A-FIB. NO NEW ORDERS RECEIVED
--- NOTE | 2019-10-15 22:05 | NUR ---
REPORT REPORT GIVEN TO SHASHA BALES. LEVOPHED AND DOBUTAMINE INFUSING. BREATHING SYNCHRONOUS WITH VENTILATOR.
[2019-10-15] MEDS: MEROPENEM 500 MG VIAL IVP SCH (22:12)
[2019-10-16] VITALS (47 sets, daily range): BP systolic 86–139; BP diastolic 40–90
[2019-10-16] MEDS: FENTANYL 1000MCG+NS 100ML 100 ML IV SCH ×2 (00:30→16:47)
--- NOTE | 2019-10-16 01:29 | NUR ---
HR SUSTAINED 130 A FIB TEMP TREATED WITH COLD PACKS, TYLENOL TEMP DECREASED TO 99.9 - REPORTED TO DR TYLER - NEW ORDER TO OZZY KELLOGG
[2019-10-16] MEDS ORDERED: VANCOMYCIN 1.25 GM in SODIUM CHLORIDE 0.9% 250 ML IV SCH (09:00)
[2019-10-16] MEDS: MEROPENEM 500 MG VIAL IVP SCH ×2 (09:13→20:15)
[2019-10-16] MEDS: ASPIRIN 81MG TAB.CHEW PO SCH (09:13)
[2019-10-16] MEDS: PANTOPRAZOLE 40 MG/VIAL IVP SCH (09:13)
--- NOTE | 2019-10-16 09:16 | NUR ---
Patient has two upper teeth that are loose, informed Wyatt PULLIAM. Addendum: 10/16/19 at 0920 by LEXI BO RT Amended: Links added.
[2019-10-16] MEDS: PHENYLEPHRINE HCL 10 MG in SODIUM CHLORIDE 0.9% 250 ML IV PRN ×5 (09:27→20:54)
[2019-10-16] MEDS ORDERED: DEXTROSE 50%-WATER 50 ML DISP.SYRIN IV ONE (13:36)
--- NOTE | 2019-10-16 15:09 | NUR ---
f/u No family at bedside. per nurse, wanting to withdraw and son is not agreeable. Family left to discuss withdrawal. Sw to follow.
[2019-10-17] VITALS (8 sets, daily range): BP systolic 87–114; BP diastolic 36–65
[2019-10-17] MEDS: FENTANYL 1000MCG+NS 100ML 100 ML IV SCH (01:23)
[2019-10-17] MEDS: PHENYLEPHRINE HCL 10 MG in SODIUM CHLORIDE 0.9% 250 ML IV PRN ×3 (01:25→09:21)
[2019-10-17] MEDS: PANTOPRAZOLE 40 MG/VIAL IVP SCH (09:34)
[2019-10-17] MEDS: ASPIRIN 81MG TAB.CHEW PO SCH (09:34)
[2019-10-17] MEDS: MEROPENEM 500 MG VIAL IVP SCH (09:34)
--- NOTE | 2019-10-17 10:51 | NUR ---
WITHDRAWAL Sw met with pt's at bedside. states son Farhat did arrive safely from [place] and was able to spend a day and night with his father (pt). states that son needed time with pt before agreeing to withdraw life support. states they will remove support today with her and 3 children present when it's done. Family has already made arrangements at [facility] in . Sw notified Flor in security of pt's children arrival for withdrawal. Nurse Eric also aware of plan. requesting corn husker machine operator visit. Sw left message for Chaplain Bennett in his office and cell. Waiting for response
[2019-10-17] MEDS ORDERED: ONDANSETRON HCL 4 MG/2 ML VIAL IVP PRN (11:30)
[2019-10-17] MEDS ORDERED: LORAZEPAM 2 MG/ML 1 ML VIAL IVP PRN (11:30)
[2019-10-17] MEDS ORDERED: GLYCOPYRROLATE 1 MG/5 ML SYRINGE IV PRN (11:30)
--- NOTE | 2019-10-17 12:55 | NUR ---
WITHDRAWAL OF LIFE SUPPORT PATIENT EXTUBATED TO 2LNC PER MD ORDER. PLEASE REFER TO DOCUMENTATION OF CHARTING. PATIENT'S , AND CHILDREN ARE AT BEDSIDE
== END 2019-10-17 14:23 | disposition expired | DRG 870 ==
LOC: EDH 15:14 → EDHIP 15:15 → 2CH 19:52 → 2BH 10-15 19:16
PROVIDERS: ADMIT Family Medicine; ATTEND Family Medicine
PROC: 5A1955Z Respiratory Ventilation, Greater than 96 Consecutive Hours (ICD-10-PCS; principal; 2019-10-12)
PROC: 0BH17EZ Insertion of Endotracheal Airway into Trachea, Via Natural or Artificial Opening (ICD-10-PCS; 2019-10-12)
DX: A41.9 Sepsis, unspecified organism (principal); K72.00 Acute and subacute hepatic failure without coma; J69.0 Pneumonitis due to inhalation of food and vomit; N17.0 Acute kidney failure with tubular necrosis; J96.01 Acute respiratory failure with hypoxia; J96.02 Acute respiratory failure with hypercapnia; E87.2 Acidosis; G93.1 Anoxic brain damage, not elsewhere classified; R57.0 Cardiogenic shock; D69.6 Thrombocytopenia, unspecified; E11.22 Type 2 diabetes mellitus with diabetic chronic kidney disease; E78.5 Hyperlipidemia, unspecified; I13.10 Hypertensive heart and chronic kidney disease without heart failure, with stage 1 through stage 4 chronic kidney disease, or unspecified chronic kidney disease; I25.10 Atherosclerotic heart disease of native coronary artery without angina pectoris; N18.9 Chronic kidney disease, unspecified; Z66 Do not resuscitate; Z80.8 Family history of malignant neoplasm of other organs or systems; Z87.820 Personal history of traumatic brain injury; I46.9 Cardiac arrest, cause unspecified; I95.9 Hypotension, unspecified; R00.1 Bradycardia, unspecified; Z03.818 Encounter for observation for suspected exposure to other biological agents ruled out
CPT/HCPCS: 31500; 36415; 36600; 70450; 71045; 74018; 80048; 80053; 80202; 81001; 82435; 82550; 82728; 82803; 82947; 82948; 83605; 83735; 83880; 84132; 84145; 84295; 84300; 84484; 85018; 85025; 85027; 85378; 85610; 85730; 86140; 87040; 87071; 87205; 87486; 87581; 87633; 87798; 92950; 93005; 93306; 93356; 93970; 94002; 94003; 94640; 99291; C9113; G0378; J0171; J0282; J0456; J0461; J0696; J1250; J1644; J1650; J2060; J2185; J2250; J2370; J2704; J2920; J3010; J3370; J3475; J3490; J7030; J7050; J7070